=== PATIENT | male | born 1940 | race Asian ===

== ENCOUNTER → 2016-10-13 | Outpatient (CLI) | payer OTHER ==
[~2016-10-13] MED LIST: ALPR0.5T10 PO; AMIO200T42 PO; ASPI-515 PO; ATEN50TA41 PO; ATOR10TA9 PO; ATOR40TA78 PO; FURO-92 PO; LOSA50TA2 PO; LOSA50TA6 PO; METF500T PO; METF500T4 PO; METO25TA35 PO; NIFE20CA PO; OXYC5TAB3 PO; POTA10TA5 PO; RIVA20TA PO; TAMS-11 PO; UMEC1DIS IH
== END | disposition home or self-care (01) ==
LOC: CFH 10:04
PROVIDERS: ATTEND Internal Medicine Cardiovascular Disease
DX: I25.10 Atherosclerotic heart disease of native coronary artery without angina pectoris (principal)
CPT/HCPCS: 93306

== ENCOUNTER → 2016-12-18 | Outpatient (CLI) | payer OTHER | END | disposition home or self-care (01) | LOC: CFH 11:01 | PROVIDERS: ATTEND Urology | DX: C61 Malignant neoplasm of prostate (principal); J92.9 Pleural plaque without asbestos; M25.78 Osteophyte, vertebrae | CPT/HCPCS: 71020 ==